=== PATIENT | female | born 1955 | race Caucasian/White ===

== ENCOUNTER 2017-02-26 05:30 | Observation (INO) ==
[2017-02-26] MEDS ORDERED: ONDANSETRON 4 MG/2 ML VIAL IV PRN (06:16)
[2017-02-26] MEDS ORDERED: ENOXAPARIN 100 MG/ML SYRINGE SUBCUT STA (06:16)
[2017-02-26] MEDS ORDERED: NITROGLYCERIN 2% OINT 1 INCH/GM PACK TOP STA (06:16)
[2017-02-26] MEDS ORDERED: MORPHINE 2 MG/1 ML SYRINGE IV PRN (06:16)
[2017-02-26] MEDS ORDERED: ASPIRIN 325 MG TABLET PO STA (06:16)
--- NOTE | 2017-02-26 06:19 | EKG Report ---
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
[2017-02-26 06:25] LABS: Basophils # 0.1 10*3/uL (0.0-0.2); Basophils % 1.1 % (0.0-0.8); Eosinophils # 0.3 10*3/uL (0.0-0.87); Eosinophils % 3.7 % (0.00-10.9); Hemoglobin 12.3 GM/DL (12.0-16.0); Immature Granulocytes % 0.1 %; Immature Granulocytes Absolute 0.01 #; Lymphocytes # 3.8 10*3/uL (1.4-4.0); Lymphocytes % 50.3 % (21.3-54.2); Mean Corpuscular HGB Conc 34.2 GM/DL (32-36); Mean Corpuscular Hemoglobin 30 PG (27-34); Mean Corpuscular Volume 87.2 FL (87-102); Mean Platelet Volume 11.3 FL (9.6-12.0); Monocytes # 0.9 10*3/uL (0.11-0.8); Monocytes % 11.5 % (1.7-12.7); Neutrophils # 2.5 10*3/uL (1.4-7.4); Neutrophils % 33.3 % (38.7-73.9); Platelet Count 323 T/CUMM (130-400); Red Blood Count 4.13 MC/CUMM (3.8-5.5); Red Cell Distribution Width 13.8 % (9.3-17.3); White Blood Count 7.5 T/CUMM (4-12)
[2017-02-26] MEDS ORDERED: NITROGLYCERIN 2% OINT 1 INCH/GM PACK TOP ONE (06:26)
[2017-02-26] MEDS ORDERED: MORPHINE 2 MG/1 ML SYRINGE ONE (06:26)
[2017-02-26] MEDS ORDERED: ONDANSETRON 4 MG/2 ML VIAL ONE (06:26)
[2017-02-26] MEDS ORDERED: ENOXAPARIN 100 MG/ML SYRINGE SUBCUT ONE (06:26)
[2017-02-26] MEDS ORDERED: ASPIRIN 325 MG TABLET ONE ×2 (06:26→06:31)
--- NOTE | 2017-02-26 06:26 | Emergency Department Note ---
Jose Elias Garcia Brooke, am scribing for, and in the presence of, Jose Enrique Cason MD 06:21 . Kamla Garcia James D, MD, personally performed the services described in this documentation, ascribed by Sloane Moctezuma in my presence, and it is both accurate and complete 623 . Arrival - Arrival Chief Complaint: Chest Pain Stated Complaint: chest pain taken 3 nitro already ED Nursing Triage Note: pt presented to triage ambulatory with c/o midsternal chest pain x 6 hrs. pt took nitro sl x 3 since 399 and states relief of CP on arrival. also reports nausea and SOB on exhertion. BLE edema noted. described pain as pressure at home and rated it a 4/10 at home Limitations: No Limitations Source: Patient, RN Notes Reviewed Time Seen by Provider: 02/26/17 05:58 - History of Present Illness HPI Narrative: Patient is a 61 year old female who presents to the ED with c/o chest pain that started yesterday. She says after taking three Nitro, the chest pain was relieved and she is not currently in pain. The pain was located in the center of her chest. The chest pain was not brought on by exertion. She denies any chest pain prior to yesterday. Patient says she got nauseated with the pain and has shortness of breath upon exertion but denies any diaphoresis. She has some bilateral lower extremity edema, also. Patient had a heart cath done, three years ago, and she did not have any stents placed. 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 Sierra, was a couple of months ago. Patient increased her blood pressure medication last week, Procardia, from 30mg to 60mg because it the 30mg was not keeping her blood pressure lowered. She has FHx of ID that includes her Father and Brother(age 57). She has PMHx of CAD, HTN, anxiety, depression, dyslipidemia, and GERD. Patient is not a smoker. Onset (ago): day(s) (1) Consistency: now resolved Date of Last Menstrual Period: hyst Allergies/Adverse Reactions: Allergies Allergy/AdvReac Type Severity Reaction Status Date / Time No Known Allergies Allergy Verified 02/26/17 05:44 Home Medications: Home Medications Medication Instructions Recorded Confirmed Type Aspirin [Ecotrin] 81 mg PO DAILY 02/24/16 02/24/16 History Atenolol [Tenormin] 25 mg PO BID 02/24/16 02/24/16 History DULoxetine [Cymbalta] 90 mg PO DAILY 02/24/16 02/24/16 History Donepezil [Aricept] 5 mg PO BEDTIME 02/24/16 02/24/16 History Estrogens, Conjugated [Premarin] 1.25 mg PO DAILY 02/24/16 02/24/16 History Fenofibrate [Tricor] 145 mg PO DAILY 02/24/16 02/24/16 History HYDROcodone/ACETAMIN 10-325 [[place] 1 tablet PO Q6H 02/24/16 02/24/16 History 10-325] Losartan [Cozaar] 50 mg PO DAILY 02/24/16 02/24/16 History Montelukast Tab [Singulair Tab] 10 mg PO BEDTIME 02/24/16 02/24/16 History Nitroglycerin [Nitrostat] 0.3 mg PO DIRECTED PRN 02/24/16 02/24/16 History Rosuvastatin [Crestor] 10 mg PO DAILY 02/24/16 02/24/16 History clonazePAM TAB [KlonoPIN] 0.5 mg PO TID 02/24/16 02/24/16 History hydroCHLOROthiazide 12.5 mg PO DAILY 02/24/16 02/24/16 History [Hydrochlorothiazide] Review of System - Review of System 12 point system: reviewed and no additional remarkable complaints except as stated - Review of System Constitutional: Absent: diaphoresis, fever Respiratory: Present: other (shortness of breath with exertion). Absent: respiratory distress Cardiovascular: Present: chest pain (middle), edema (bilateral lower extremity) Gastrointestinal: Present: nausea Skin: Absent: rash Medical,Surgical,& Family Hx - Medical History Cardio: History of: CAD, Hypertension Psychological: History of: Anxiety Disorders, Depression Endocrine: History of: Dyslipidemia Gastrointestinal: History of: GERD - Surgical History Cardiac Surgeries: Sugical HX of: Cardiac Catheterization (2013) Abdominal Surgeries: Surgical HX of: Abdominal Surgery (tummy tuck) Reproductive Surgeries: Surgical HX of;: Breast Surgery (breast reduction), Hysterectomy - Social History Smoking Status: Never smoker Frequency of Alcohol Use: Rarely Type of Drug Use: None Exam Vital Signs: Vital Signs Temperature 97.7 F 02/26/17 05:33 Pulse Rate 90 02/26/17 05:58 Respiratory Rate 20 02/26/17 05:58 Blood Pressure 116/69 02/26/17 05:58 O2 Sat by Pulse Oximetry 97 02/26/17 05:58 GENERAL: This is a well-nourished well-developed white female in no apparent distress. VITAL SIGNS: Reviewed HEENT: Head is atraumatic and normocephalic. Pupils are equal round react to light. Extraocular movements are intact. Oropharynx is benign with moist mucous membranes. NECK: Neck is soft and supple without tenderness. There are no masses. There is no lymphadenopathy. LUNGS: Lungs are clear to auscultation. Chest rises symmetrically. There is no chest wall tenderness. CV: Heart is regular rate and rhythm without murmurs rubs or gallops. ABDOMEN: Abdomen is soft, nontender to palpation. There are no abdominal abnormal masses palpated. There is no organomegaly. Bowel sounds are present and active. SKIN: Skin is warm and dry. No rash. EXTREMITIES: Patient has full range of motion without tenderness. There is no pedal edema. NEUROLOGIC: Awake alert and oriented 4. Cranial nerves II through XII are grossly intact. Motor is 5 over 5 in all extremities bilaterally. Course - Consultations Consultation #1: Discussed with Dr. Graves. Patient will be admitted to his service. Initial orders written for him. Patient's care will be assumed by him on her arrival to the [facility]. Time: 07:24 Results - Labs CBC & BMP: 02/26/17 05:53 02/26/17 05:53 Lab Results: I have reviewed the patients labs Labs: Laboratory Tests 02/26/17 05:53 Troponin I < 0.015 - EKG EKG results: interpreted by ERMD - Impressions EKG: Sinus tachycardia with a rate of 100, nonspecific ST-T wave changes, normal axis. - Diagnostic Findings Procedure: Chest x-ray: image reviewed by me (No infiltrates, no pleural effusions.) Disposition Clinical Impression: Chest pain, Coronary artery disease, Essential hypertension Case discussed with: patient Disposition: Still a Patient Condition: Stable Time of Disposition: 07:16
[2017-02-26 06:44] LABS: Partial Thromboplastin Time 24.9 SECS (0-40)
[2017-02-26 06:50] LABS: Eosinophils 8 % (0-10); Hypochromasia 1+; Lymphocytes 45 % (20-55); Platelet Estimate Adequate; Segmented Neutrophils 32 % (50-85); Total Cells Counted 100
--- NOTE | 2017-02-26 06:53 | XRay Report ---
XR chest 2V Indication: Chest pain Comparison: 20 July 2014 Findings: The heart and mediastinum are normal in size and configuration. The pulmonary vascularity is normal in caliber. No lung infiltrates, effusions, pneumothorax or other abnormality is demonstrated. Impression: Normal chest x-ray PROCEDURE INTERPRETED AT [facility] DEPARTMENT OF RADIOLOGY Final Report Signed by: Dr. Andre Matthews
[2017-02-26 07:03] LABS: Albumin 3.4 G/DL (3.4-5.0); Bilirubin,Total 0.6 MG/DL (0.2-1.0); Calcium 8.8 MG/DL (8.5-10.1); Osmolality,Calculated 283.4 MOS/KG (273-304); Potassium 3.4 MMOL/L (3.5-5.1); Total Protein 6.4 G/DL (6.4-8.3)
[2017-02-26 08:07] LABS: Barbiturates Screen,Urine Negative (Negative); Benzodiazepines Screen,Urine Negative (Negative); Cannabinoid Screen,Urine Negative (Negative); Opiate Screen,Urine Positive (Negative); Phencyclidine Screen,Urine Negative (Negative)
[2017-02-26] MEDS ORDERED: SODIUM CHLORIDE 0.9% 1,000 ML IV SCH (08:27)
[2017-02-26] MEDS ORDERED: MAGNESIUM SULF RIDER 2 GM in PREMIX 1 EACH IV PRN ×2 (08:27→09:35)
[2017-02-26] MEDS ORDERED: MAGNESIUM SULF RIDER 4 GM in PREMIX 1 EACH IV PRN (08:27)
[2017-02-26] MEDS ORDERED: POTASSIUM CHLORIDE RIDER 10 MEQ in PREMIX 1 EACH IV PRN (09:35)
[2017-02-26] MEDS ORDERED: DIAZEPAM 5 MG TABLET PO ONE (09:35)
[2017-02-26] MEDS ORDERED: diphenhydrAMINE CAP 25 MG CAPSULE PO ONE (09:35)
--- NOTE | 2017-02-26 10:09 | Cardiology History & Physical ---
<Megan Flores E - Last Filed: 02/26/17 09:18> Assessment and Plan - Time spent with patient Time spent with patient: Greater than 30 minutes (1) Dyslipidemia Status: Chronic Assessment and plan: SEE PLAN OF CARE LISTED BELOW Current Visit: Yes (2) Sleep disorder Status: Chronic Assessment and plan: SEE PLAN OF CARE LISTED BELOW Current Visit: Yes (3) Anxiety Status: Chronic Assessment and plan: SEE PLAN OF CARE LISTED BELOW Current Visit: Yes (4) Chest pain Status: Resolved Assessment and plan: SEE PLAN OF CARE LISTED BELOW Current Visit: Yes (5) Essential hypertension Status: Chronic Assessment and plan: SEE PLAN OF CARE LISTED BELOW Current Visit: Yes (6) Edema Status: Acute Assessment and plan: SEE PLAN OF CARE LISTED BELOW Current Visit: Yes History of Present Illness Chief complaint: Chest pain History of present illness: 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 Norton, 61WF, followed by Dr. Sierra. Last seen in cardiology clinic January 05, 2017. Risk factors include: Hypertension, dyslipidemia, family history of premature PVD. Heart catheterization 05/27/2014 revealed the following: The left main artery was large, there was an ostial narrowing in certain views that may have been 50-60%, but in some views it was less than 20%. Dr. Rivero was consulted. It was felt that the left main disease was not critical. Stress test November 16, 2016 revealed normal perfusion study, LVEF 77%. History of severe anxiety with the loss of a child. 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 Chest discomfort occurred last evening around 9 PM, located in the mid to left chest area. Patient was sitting when this occurred. She described as "sharp and squeezing" sensation without radiation. It is not associated with shortness of breath, nausea or vomiting. She took a nitroglycerin and the chest discomfort relieved itself. This morning around 0330, patient began to experience the same type of chest discomfort. She took a total of 3 nitroglycerin this morning before the chest pain was relieved. Rates the discomfort at its worse as a 7 on a scale of 1-10, currently chest pain-free. She can identify no aggravating factors, nitroglycerin possibly related chest discomfort. Cardiac biomarkers negative, EKG unrevealing. Dr. Graves is present, has seen and examined patient. Given her last heart catheterization report, symptoms relieved with nitroglycerin, it is felt best to proceed with heart catheterization. I will keep her NPO and Dr. Graves will discuss with Dr. Tim. Of note, patient has been battling hypertension over the past several weeks with recent medication adjustments in clinic. She finds that her blood pressure has been elevated during the night frequently, averaging 170s/90s. Figueroa Goyal, [employer], initiated Procardia XL 30 mg each evening. She recently increase that to 60 mg each evening and blood pressure has been somewhat improved. Also, she does not sleep well. History of insomnia, easy fatigability, poor sleep quality. She believes that she may have sleep apnea as she frequently wakes gasping for air. Will have Dr. Bentley see her during this admission. ASSESSMENT/PLAN: 1. CHEST PAIN - NPO for [facility] today 2. HYPERTENSION - adjust medications accordingly during hospital stay 3. DYSLIPIDEMIA - reports prior history of triglycerides being 1300 prior to starting lipid-lowering agent. 4. EDEMA - worse since starting Procardia. Will add d-dimer to her lab draw 5. ANXIETY - lost her daughter who is a senior was on the hospital approximately 5 years ago. She was involved in a car wreck. She has sought professional help and feels like she is stable most days 6. SLEEP DISORDER - consult Dr. Bentley Home Medications Medication Instructions Recorded Confirmed Type Aspirin [Ecotrin] 81 mg PO DAILY 02/24/16 02/26/17 History Atenolol [Tenormin] 25 mg PO DAILY 02/24/16 02/26/17 History DULoxetine [Cymbalta] 90 mg PO DAILY 02/24/16 02/26/17 History Donepezil [Aricept] 5 mg PO BEDTIME 02/24/16 02/26/17 History Estrogens, Conjugated [Premarin] 1.25 mg PO DAILY 02/24/16 02/26/17 History Fenofibrate [Tricor] 145 mg PO DAILY 02/24/16 02/26/17 History HYDROcodone/ACETAMIN 10-325 [[place] 1 tablet PO BID 02/24/16 02/26/17 History 10-325] Losartan [Cozaar] 100 mg PO DAILY 02/24/16 02/26/17 History Montelukast Tab [Singulair Tab] 10 mg PO BEDTIME 02/24/16 02/26/17 History Rosuvastatin [Crestor] 10 mg PO DAILY 02/24/16 02/26/17 History clonazePAM TAB [KlonoPIN] 0.5 mg PO BID 02/24/16 02/26/17 History hydroCHLOROthiazide 12.5 mg PO DAILY 02/24/16 02/26/17 History [Hydrochlorothiazide] Atenolol [Atenolol] 50 mg PO BEDTIME 02/26/17 02/26/17 History Gabapentin 300 mg PO DAILY 02/26/17 02/26/17 History NIFEdipine [Nifedipine ER] 30 mg PO BEDTIME 02/26/17 02/26/17 History Nitroglycerin [Nitroglycerin SL 0.4 mg PO DIRECTED 02/26/17 02/26/17 History Tab] Temazepam [Restoril] 30 mg PO BEDTIME 02/26/17 02/26/17 History Allergies Allergy/AdvReac Type Severity Reaction Status Date / Time No Known Allergies Allergy Verified 02/26/17 05:44 Review of systems: REVIEW OF SYSTEMS: - Constitutional Constitutional: Present: Fatigue. Absent: syncope, anorexia, night sweats - EENT Eyes: Absent: blurry vision, loss of vision, diplopia Ears: Absent: decreased hearing, ear pain, ear discharge - Cardiovascular Cardiovascular: Present: chest pain at various times. Recent edema of lower extremity since starting Procardia. Frequent palpitations. Denies dyspnea on exertion. Absent: chest pain with deep breath, claudication - Respiratory Respiratory: Denies: BA, cough. Absent: wheezing, hemoptysis, change in phlegm color - Gastrointestinal Gastrointestinal: Denies: constipation. Absent: adbominal pain, hematemesis, hematochezia, melena, change in bowel habits, nausea - Genitourinary Genitourinary: Absent: difficulty urinating, dysuria, urinary hesitancy, flank pain - Musculoskeletal Musculoskeletal: Denies: back pain Absent: joint swelling, muscle cramps, muscle weakness - Neurological Neurological: Present: normal gait without frequent falls. Absent: dizziness, hemiparesis - Psychiatric Psychiatric: Acknowledges: anxiety, depression, difficulty concentrating - Endocrine Endocrine: Present: fatigue. Absent: cold intolerance, heat intolerance, polyuria, polyphagia, polydipsia - Hematologic/Lymphatic Hematologic/Lymphatic: Present: easy bruising. Absent: easy bleeding -Integumentary Integumentary: Absent: lesions, rashes, skin breakdown Medical,Surgical,& Family Hx - Medical History Cardio: History of: CAD, Hypertension No history of: DE Psychological: History of: Anxiety Disorders, Depression Endocrine: History of: Dyslipidemia Gastrointestinal: History of: GERD - Surgical History Cardiac Surgeries: Sugical HX of: Cardiac Catheterization (2013) Abdominal Surgeries: Surgical HX of: Abdominal Surgery (tummy tuck) Reproductive Surgeries: Surgical HX of;: Breast Surgery (breast reduction), Hysterectomy - Family History Family History: Reports;: Family Hypertension - Social History Smoking Status: Never smoker Have you smoked in the last 12 months: No Frequency of Alcohol Use: Rarely Type of Drug Use: None Marital Status: Lives With:: Spouse Functional capacity: independent ambulation Cardiology Physical Exam - Constitutional Vitals: Vital Signs Temp Pulse Resp BP Pulse Ox 96.6 F L 104 H 17 156/89 95 02/26/17 08:27 02/26/17 08:27 02/26/17 08:27 02/26/17 08:27 02/26/17 08:27 Intake and Output 02/25/17 02/26/17 02/26/17 23:59 07:59 15:59 Other: Weight 87.09 kg Patient Weight 02/26/17 23:59 Weight 87.09 kg Exam: General: [Appears well with no apparent distress.] [Pleasant and cooperative. ] [Appears comfortable.] HEENT: [PERRL, normocephalic, atraumatic. Mucous membranes moist. No jaundice noted. Conjunctiva moist and clear, sclerae anicteric] Neck: No JVD/HJR, no thyromegaly or lymphadenopathy noted. No carotid bruit appreciated Cardiac: [Regular rate and rhythm.] [No murmur rub or gallop.] Lungs: [Clear to auscultation without accessory muscle use to assist the respiratory pattern.] Not requiring oxygen Abdomen: Soft, bowel sounds normoactive. Nontender and nondistended. No abdominal bruit or thrill noted. No masses noted. Musculoskeletal: No fluid collection. Decreased range of motion is noted. Extremities: No clubbing, cyanosis noted. [ No edema noted.] Upper extremity pulses 2+. Lower extremity pulses 2+. Capillary refill less than 3 seconds. Skin: No unusual lesions or rashes. No skin breakdown appreciated. Neuro: Awake, alert and oriented 3. Moves all extremities well without hemiparesis or paralysis. No essential tremor is appreciated. Result/EKG - Labs CBC & BMP: 02/26/17 05:53 02/26/17 05:53 Lab Results: I have reviewed the past 24 hour labs Labs: Laboratory Results - last 24 hr 02/26/17 02/26/17 02/26/17 05:53 05:53 05:53 WBC 7.5 RBC 4.13 Hgb 12.3 Hct 36.0 MCV 87.2 MCH 30 MCHC 34.2 RDW 13.8 Plt Count 323 MPV 11.3 Neut % (Auto) 33.3 L Lymph % (Auto) 50.3 [place] % (Auto) 11.5 Eos % (Auto) 3.7 Baso % (Auto) 1.1 H Neut # (Auto) 2.5 Lymph # (Auto) 3.8 [place] # (Auto) 0.9 H Eos # (Auto) 0.3 Baso # (Auto) 0.1 Total Counted 100 Immature Gran % 0.1 Nucleated RBC % 0.0 Immature Gran # 0.01 Segmented Neutrophils 32 L Lymphocytes 45 Monocytes 14 Eosinophils 8 Basophils 1.0 H Nucleated RBCs # 0.00 Platelet Estimate Adequate Hypochromasia 1+ INR 1.0 PT Patient/Control Mix 11.0 Circ Anticoag PTT 24.9 Sodium 140 Potassium 3.4 L Chloride 104 Carbon Dioxide 27 Anion Gap 12.4 BUN 24 H Creatinine 0.70 GFR Calculation 108 BUN/Creatinine Ratio 34.00 H Glucose 113 H Calculated Osmolality 283.4 Calcium 8.8 Total Bilirubin 0.60 AST 19 ALT 24 Alkaline Phosphatase 39 L Troponin I Total Protein 6.4 Albumin 3.4 Globulin 3.0 Albumin/Globulin Ratio 1.1 Lipase 206.0 Urine Opiates Screen Ur Barbiturates Screen Ur Phencyclidine Scrn U Amphetamine/Methamph U Benzodiazepines Scrn U Cocaine Metab Screen U Cannabinoids Screen 02/26/17 02/26/17 05:53 07:39 WBC RBC Hgb Hct MCV MCH MCHC RDW Plt Count MPV Neut % (Auto) Lymph % (Auto) [place] % (Auto) Eos % (Auto) Baso % (Auto) Neut # (Auto) Lymph # (Auto) [place] # (Auto) Eos # (Auto) Baso # (Auto) Total Counted Immature Gran % Nucleated RBC % Immature Gran # Segmented Neutrophils Lymphocytes Monocytes Eosinophils Basophils Nucleated RBCs # Platelet Estimate Hypochromasia INR PT Patient/Control Mix Circ Anticoag PTT Sodium Potassium Chloride Carbon Dioxide Anion Gap BUN Creatinine GFR Calculation BUN/Creatinine Ratio Glucose Calculated Osmolality Calcium Total Bilirubin AST ALT Alkaline Phosphatase Troponin I < 0.015 Total Protein Albumin Globulin Albumin/Globulin Ratio Lipase Urine Opiates Screen Positive H Ur Barbiturates Screen Negative Ur Phencyclidine Scrn Negative U Amphetamine/Methamph Negative U Benzodiazepines Scrn Negative U Cocaine Metab Screen Negative U Cannabinoids Screen Negative - Diagnostic Findings Procedure: Chest x-ray: report reviewed by me - EKG EKG results: interpreted by wy EKG shows: sinus rhythm <Shaen Graves - Last Filed: 02/26/17 10:21> History of Present Illness History of present illness: Cardiology addendum. Patient examined chart reviewed and discussed with nurse Megan flores Cardiac cath May 27, 2014 showed moderate ostial left main stenosis with normal ejection fraction. Normal nuclear stress test November 16, 2016 Patient had chest pain last night at 9 PM relieved after 1 nitro and recurrent chest pain around 3 AM this morning relieved after 3 nitro's. She never had to take 3 nitros before to get relief. Negative troponin. EKG shows ST-T wave changes only. Hypertension Hyperlipidemia Family history PVD and carotid stenosis Lifetime non-smoker Plan Cardiac cath. Procedure, risk benefit reviewed with patient and her with nurse Guzman present for the full discussion. All questions answered. She agrees to proceed. Cardiology Physical Exam - Constitutional Vitals: Vital Signs Temp Pulse Resp BP Pulse Ox 96.6 F L 104 H 17 156/89 95 02/26/17 08:27 02/26/17 08:27 02/26/17 08:27 02/26/17 08:27 02/26/17 08:27 Intake and Output 02/25/17 02/26/17 02/26/17 23:59 07:59 15:59 Other: Weight 87.09 kg Patient Weight 02/26/17 23:59 Weight 87.09 kg Result/EKG - Labs CBC & BMP: 02/26/17 05:53 02/26/17 05:53 Labs: Laboratory Results - last 24 hr 02/26/17 02/26/17 02/26/17 05:53 05:53 05:53 WBC 7.5 RBC 4.13 Hgb 12.3 Hct 36.0 MCV 87.2 MCH 30 MCHC 34.2 RDW 13.8 Plt Count 323 MPV 11.3 Neut % (Auto) 33.3 L Lymph % (Auto) 50.3 [place] % (Auto) 11.5 Eos % (Auto) 3.7 Baso % (Auto) 1.1 H Neut # (Auto) 2.5 Lymph # (Auto) 3.8 [place] # (Auto) 0.9 H Eos # (Auto) 0.3 Baso # (Auto) 0.1 Total Counted 100 Immature Gran % 0.1 Nucleated RBC % 0.0 Immature Gran # 0.01 Segmented Neutrophils 32 L Lymphocytes 45 Monocytes 14 Eosinophils 8 Basophils 1.0 H Nucleated RBCs # 0.00 Platelet Estimate Adequate Hypochromasia 1+ INR 1.0 PT Patient/Control Mix 11.0 Circ Anticoag PTT 24.9 Sodium 140 Potassium 3.4 L Chloride 104 Carbon Dioxide 27 Anion Gap 12.4 BUN 24 H Creatinine 0.70 GFR Calculation 108 BUN/Creatinine Ratio 34.00 H Glucose 113 H Calculated Osmolality 283.4 Calcium 8.8 Total Bilirubin 0.60 AST 19 ALT 24 Alkaline Phosphatase 39 L Troponin I Total Protein 6.4 Albumin 3.4 Globulin 3.0 Albumin/Globulin Ratio 1.1 Lipase 206.0 Urine Opiates Screen Ur Barbiturates Screen Ur Phencyclidine Scrn U Amphetamine/Methamph U Benzodiazepines Scrn U Cocaine Metab Screen U Cannabinoids Screen 02/26/17 02/26/17 05:53 07:39 WBC RBC Hgb Hct MCV MCH MCHC RDW Plt Count MPV Neut % (Auto) Lymph % (Auto) [place] % (Auto) Eos % (Auto) Baso % (Auto) Neut # (Auto) Lymph # (Auto) [place] # (Auto) Eos # (Auto) Baso # (Auto) Total Counted Immature Gran % Nucleated RBC % Immature Gran # Segmented Neutrophils Lymphocytes Monocytes Eosinophils Basophils Nucleated RBCs # Platelet Estimate Hypochromasia INR PT Patient/Control Mix Circ Anticoag PTT Sodium Potassium Chloride Carbon Dioxide Anion Gap BUN Creatinine GFR Calculation BUN/Creatinine Ratio Glucose Calculated Osmolality Calcium Total Bilirubin AST ALT Alkaline Phosphatase Troponin I < 0.015 Total Protein Albumin Globulin Albumin/Globulin Ratio Lipase Urine Opiates Screen Positive H Ur Barbiturates Screen Negative Ur Phencyclidine Scrn Negative U Amphetamine/Methamph Negative U Benzodiazepines Scrn Negative U Cocaine Metab Screen Negative U Cannabinoids Screen Negative
--- NOTE | 2017-02-26 10:22 | History and Physical Update ---
Sedation H&P Update - History and Physical H&P was reviewed, the patient examined and there: are no changes in the patients condition since last H&P was completed. - Dictation Physical: refer to H&P completed by admitting physician (I saw and examined the patient. I reviewed with her the [facility] films from 2013. Her was present. ) - Physical Exam Mental Status: alert and oriented Heart: regular rate and rhythm Lung: clear to auscultation Abdomen: within normal limits Vitals: within normal limits - Sedation Plan for Sedation: moderate Patient Consent: Procedure disscussed with patient and patinet has consented., Risks and benefits were discussed with patient,including infection,, bleeding, injury to surrounding structures, seizure, temporary nerve, Patient understands and accepts potential risks/benefits and agrees to, proceed. ASA Class: II Airway Assessment: Class III: Soft palate, base of uvula visible
[2017-02-26] MEDS ORDERED: HEPARIN/NACL 0.9% 2 UNITS/ML 1,000 ML IV ONE (10:33)
[2017-02-26] MEDS ORDERED: LIDOCAINE 1% 20 ML VIAL ONE (10:33)
[2017-02-26] MEDS ORDERED: MIDAZOLAM 2 MG/2 ML VIAL ONE ×2 (10:33→11:54)
[2017-02-26] MEDS ORDERED: fentaNYL 100 MCG/2 ML VIAL ONE (10:33)
[2017-02-26] MEDS ORDERED: diphenhydrAMINE 50 MG/1 ML VIAL ONE (11:01)
[2017-02-26] MEDS ORDERED: NITROGLYCERIN DRIP 50 MG/250 ML BOTTLE IV ONE (11:18)
[2017-02-26] MEDS ORDERED: HEPARIN 5,000 UNIT/1 ML VIAL ONE (11:27)
[2017-02-26] MEDS ORDERED: ADENOSINE 90 MG/30 ML VIAL IV ONE (11:31)
--- NOTE | 2017-02-26 12:48 | Sleep Medicine Consult ---
Assessment and Plan (1) Sleep disorder Status: Chronic Assessment and plan: With her history of difficult to control hypertension and difficulty maintaining sleep due to nocturia, I do think that sleep evaluation should be done. We will set her up for outpatient sleep study and follow-up on her results. She does have a history of light snoring. Thank you for this consult. Current Visit: Yes (2) Essential hypertension Status: Chronic Assessment and plan: The prevalence rate for obstructive sleep apnea patients with hypertension is 35 %. That rate can be as high as 80% in patients who require 4 or more medications for blood pressure control. Current Visit: Yes History of Present Illness Chief complaint: Sleep apnea History of present illness: Ms. Norton is a 61 year old female admitted with chest pain. During the course of her evaluation it was noted that she was having issues with her sleep. She is a light snore with no history of witnessed apneas. She does have difficulty initiating sleep at times. She does awaken multiple times during the night to urinate and estimates at least 4 times nightly. She has been having issues with lower extremity swelling as well. She has difficult to control hypertension and is on at least 3 medications for blood pressure control. She has had a cardiac cath but did not require intervention and will be continued on medication. She denies significant issues with sleepiness. She does sometimes have discomfort of her legs with kicking and jerking of her legs. Home Medications Medication Instructions Recorded Confirmed Type Aspirin [Ecotrin] 81 mg PO DAILY 02/24/16 02/26/17 History Atenolol [Tenormin] 25 mg PO DAILY 02/24/16 02/26/17 History DULoxetine [Cymbalta] 90 mg PO DAILY 02/24/16 02/26/17 History Donepezil [Aricept] 5 mg PO BEDTIME 02/24/16 02/26/17 History Estrogens, Conjugated [Premarin] 1.25 mg PO DAILY 02/24/16 02/26/17 History Fenofibrate [Tricor] 145 mg PO DAILY 02/24/16 02/26/17 History HYDROcodone/ACETAMIN 10-325 [Poth 1 tablet PO BID 02/24/16 02/26/17 History 10-325] Losartan [Cozaar] 100 mg PO DAILY 02/24/16 02/26/17 History Montelukast Tab [Singulair Tab] 10 mg PO BEDTIME 02/24/16 02/26/17 History Rosuvastatin [Crestor] 10 mg PO DAILY 02/24/16 02/26/17 History clonazePAM TAB [KlonoPIN] 0.5 mg PO BID 02/24/16 02/26/17 History hydroCHLOROthiazide 12.5 mg PO DAILY 02/24/16 02/26/17 History [Hydrochlorothiazide] Atenolol [Atenolol] 50 mg PO BEDTIME 02/26/17 02/26/17 History Gabapentin 300 mg PO DAILY 02/26/17 02/26/17 History NIFEdipine [Nifedipine ER] 30 mg PO BEDTIME 02/26/17 02/26/17 History Nitroglycerin [Nitroglycerin SL 0.4 mg PO DIRECTED 02/26/17 02/26/17 History Tab] Temazepam [Restoril] 30 mg PO BEDTIME 02/26/17 02/26/17 History Allergies Allergy/AdvReac Type Severity Reaction Status Date / Time No Known Allergies Allergy Verified 02/26/17 05:44 Review of systems: Otherwise unremarkable from a sleep medicine standpoint Exam (Pulmonay) H&P - Constitutional Vitals: Period Temp Pulse Resp BP Sys/Ho Pulse Ox Last 24 Hr 96.6 F-97.7 F 83-110 13-20 116-156/49-89 95-100 Exam: She is alert and responsive in no acute distress. Pupils equal round reactive to light and accommodation. Extraocular movements intact. Oropharynx with a class III Mallampati exam. Neck is supple without adenopathy or thyromegaly. No supraclavicular adenopathy is noted. Chest with symmetrical breath sounds without focal wheeze, rhonchi, or rales. Cardiac exam reveals a regular rhythm without murmur or gallop. Abdomen soft nontender without palpable hepatosplenomegaly or mass. Extremities are without clubbing, cyanosis, or edema. Neurologically, she is grossly intact. She moves all extremities with good strength. Medical,Surgical,& Family Hx - Medical History Cardio: History of: CAD, Hypertension No history of: [place] Psychological: History of: Anxiety Disorders, Depression Endocrine: History of: Dyslipidemia Gastrointestinal: History of: GERD - Surgical History Cardiac Surgeries: Sugical HX of: Cardiac Catheterization (2013) Abdominal Surgeries: Surgical HX of: Abdominal Surgery (tummy tuck) Reproductive Surgeries: Surgical HX of;: Breast Surgery (breast reduction), Hysterectomy - Family History Family History: Reports;: Family Hypertension - Social History Smoking Status: Never smoker Frequency of Alcohol Use: Rarely Type of Drug Use: None Results - Labs CBC & BMP: 02/26/17 05:53 02/26/17 05:53 Lab Results: I have reviewed the past 24 hour labs Quality Measures - VTE Contraindication to Pharmacological VTE Prophylaxis: High Risk of Bleeding
--- NOTE | 2017-02-26 12:54 | Cardiac Catheterization ---
Date of Procedure:: 02/26/17 Pre-op Diagnosis: Typical chest pain at rest with known coronary artery disease (left heart 2014 with left main stenosis, equivocal) Post-op diagnosis: other (Typical chest pain relieved with nitroglycerin and no hemodynamically significant demonstrable stenosis with IVUS evaluation of left main showing no significant epicardial narrowing, mild atheroma) Procedure: Procedures: 1. Selective left and right coronary angiography 2. Right femoral iliac angiography 3. Closure right femoral arteriotomy with Mynx closure device 4. IVUS of the proximal LAD and Left main coronary arteries After consent was taken from the patient. Taken to the catheterization lab for left heart catheterization via the femoral artery. Time out was taken and recorded. 1% lidocaine was infiltrated in the skin and subcutaneous tissue overlying the right femoral artery. Modified Seldinger technique and an 18- gauge Cook needle was used for access to the right femoral artery. An 0.35 J- wire was advanced through the needle into the central aorta under fluoroscopy. A small skin was made and a 6 Danish sheath was placed over the wire. The sheath was aspirated and flushed. A JL4 4 Danish catheter was advanced over the wires in the left main coronary artery was selectively engaged. Multiple orthogonal views of the left system were obtained. The catheter was then exchanged over the wire. The sheath was aspirated and flushed. A JR4 catheter was advanced over the wire into the central aorta. The right coronary was selectively engaged and orthogonal views of the right coronary artery were obtained. The catheter was then exchanged over the wire, the sheath was aspirated and flushed. At this time the batting machine operator insulation reviewed the films. Dr. Graves also was consulted to review the films with me. We agreed that this appeared to be an equivocal proximal left main lesion similar to the imaging seen in 2014. At this time the room was set up for the intervention mode the patient received 5000 units of intravenous heparin and ACT was verified to be greater than 230 seconds. A 6 Danish JL4 guide was advanced over the wire in the central aorta with great care taken not to selectively engage the left main. A flow wire was advanced into the distal LAD after it had been normalized and the guide. Due to technical difficulties with computer software the flow wire was unsuccessful. The wire was removed. At this time a 180 cm Synesis pro-water wire was advanced into the distal LAD. 200 mics of intracoronary nitroglycerin were given and IVUS catheter was advanced over the wire. When it left the guide , the screen would go blank. Representatives work and contacted and they recommended a new catheter which we used successfully to image the proximal LAD and left main. There is mild atheroma at the ostial proximal portion of the LAD. There was no significant atheroma seen in the left main itself. The area was calculated to exceed 17 mm2. After completion of the IV was run 3 2 orthogonal views were obtained after the wire was removed. The batting machine operator insulation reviewed the films. The sheath was aspirated and flushed and a right femoral and iliac angiography was performed. The access site was amenable for closure and the area was reprepped with ChloraPrep and draped with sterile towels. The Mynx closure device was used in standard technique. There was no hematoma and distal pulses were good. At the completion of the procedure the patient complained some of back pain in the middle of her back. She rated it as as 1-2 out of 10. She has not had back pain before. There was concerns of possible retroperitoneal hematoma. There had been a stick before successful access to the femoral artery that was not able to pass the wire. She will be monitored closely for retroperitoneal bleeding. There was no evidence of bleeding on the right femoral iliac angiogram. I discussed findings with the patient and her as well as their daughter- in-law Nancy Norton FINDINGS: Ao:147/75 LM:There is a very eccentric appearing angiographic deformity in the proximal segment of the vessel. Angiographically this appears to be significantly in the AMHARIC view and in the AMHARIC cranial view specifically. This was the area specifically and underwent intravascular ultrasound that showed an area of 17 mm . There was no evidence of significant atheroma in the left main there was minimal luminal irregularities by ultrasound. This does not appear to be hemodynamically significant myelitis. LAD: This vessel xenograft were normal however there is minimal atheroma less than 10% in the proximal/ostial portion LCx: Small nondominant vessel. Is angiographically normal RCA: There is a large dominant vessel free of any atheroma. RFA/TEVIN: Right femoral iliac arteries are normal. Assessment: 1. Eccentric left main vessel angiographically with no intravascular ultrasound evidence of hemodynamically significant stenosis. 2. Mild atheroma in the proximal LAD by IVUS PLAN: 1. Therapeutic lifestyle changes risk factor modification consider other causes of chest discomfort relieved with nitroglycerin or small vessel disease. There is LAZARUS III flow in all vessels. Implants: Mynx closure device Anesthesia: moderate conscious sedation Surgeon / Physician: Yaquelin Tim Lace Mender: none Estimated blood loss: none Specimens: none sent Condition: stable Disposition: floor - Medications / Follow-up
--- NOTE | 2017-02-26 14:15 | EKG Report ---
Stationary ECG Study [facility] Test Date: 02/26/2017 2:17:16 PM Pat Name: EVITA SELLERS Department: Room: 275 Gender: F Food Writer: ARELIS : 1955 Requested by: Jose Enrique West Order Number: [id number] Reading MD: CARTER LE Intervals [place] Rate: 87 P: 43 AL: 176 QRS: 13 QRSD: 82 T: 28 QT: 364 QTc: 409 Interpretive Statements SINUS RHYTHM NONSPECIFIC T-WAVE ABNORMALITY Electronically Signed On 02-27-17 05:36:12 CDT by CARTER LE [email or web address]
[2017-02-26] MEDS: ESTROGENS (CONJ) 0.625 MG TABLET PO SCH (16:35)
[2017-02-26] MEDS: DULoxetine 30 MG CAPSULE PO SCH (16:35)
[2017-02-26] MEDS: clonazePAM 0.5 MG TABLET PO SCH ×2 (16:35→20:32)
[2017-02-26] MEDS: FENOFIBRATE 145 MG TABLET PO SCH (16:35)
[2017-02-26] MEDS: ATENOLOL 25 MG TABLET PO SCH (16:35)
[2017-02-26] MEDS ORDERED: NITROGLYCERIN SL 0.4 MG TABLET SL PRN (16:45)
[2017-02-26] MEDS ORDERED: GABAPENTIN 300 MG CAPSULE PO SCH (18:41)
[2017-02-26] MEDS ORDERED: DONEPEZIL 5 MG TABLET PO SCH (21:00)
[2017-02-26] MEDS ORDERED: ATENOLOL 50 MG TABLET PO SCH (21:00)
[2017-02-26] MEDS ORDERED: TEMAZEPAM 15 MG CAPSULE PO SCH (21:00)
[2017-02-26] MEDS ORDERED: clonazePAM 0.5 MG TABLET PO SCH (21:00)
[2017-02-26] MEDS ORDERED: MONTELUKAST 10 MG TABLET PO SCH (21:00)
[2017-02-27 06:13] LABS: Basophils # 0.1 10*3/uL (0.0-0.2); Basophils % 0.9 % (0.0-0.8); Eosinophils # 0.3 10*3/uL (0.0-0.87); Eosinophils % 3.7 % (0.00-10.9); Hematocrit 35.7 VOL% (35.7-47.0); Hemoglobin 11.8 GM/DL (12.0-16.0); Immature Granulocytes % 0.3 %; Immature Granulocytes Absolute 0.02 #; Lymphocytes # 2.9 10*3/uL (1.4-4.0); Lymphocytes % 38.7 % (21.3-54.2); Mean Corpuscular HGB Conc 33.1 GM/DL (32-36); Mean Corpuscular Hemoglobin 30 PG (27-34); Mean Corpuscular Volume 89.5 FL (87-102); Mean Platelet Volume 11.4 FL (9.6-12.0); Monocytes % 12.9 % (1.7-12.7); Neutrophils # 3.2 10*3/uL (1.4-7.4); Neutrophils % 43.5 % (38.7-73.9); Platelet Count 306 T/CUMM (130-400); Red Blood Count 3.99 MC/CUMM (3.8-5.5); Red Cell Distribution Width 13.9 % (9.3-17.3); White Blood Count 7.4 T/CUMM (4-12)
[2017-02-27 06:48] LABS: Calcium 9.1 MG/DL (8.5-10.1); Magnesium 2.1 MG/DL (1.8-2.4); Osmolality,Calculated 284.4 MOS/KG (273-304)
[2017-02-27 07:51] VITALS: BP 146/75
--- NOTE | 2017-02-27 08:26 | Cardiology Progress Note ---
Cardiology - PN: Subj Interval history: Cardiology note Cath findings reviewed with Dr. Hernández and with the patient and her . Minimal left main and LAD disease by SOHA Noncardiac chest pain. Right groin soft and dry. No bruit or hematoma. Distal pulses 2+ symmetric. Telemetry shows steady sinus rhythm. Regular rhythm no murmur or gallop Clear lungs Abdomen benign Lab data today Sodium 140 potassium 4.0 chloride 104 CO2 31 BUN 23 creatinine 0.80 Glucose 138 magnesium 2.1 White count 7.4 hemoglobin 11.8 hematocrit 35.7 Plan Home today no stooping straining or heavy lifting for 1 week To minimize potential groin problems Outpatient sleep study with Dr. Bentley Patient and reassured. Noncardiac chest pain Follow-up with Dr. Sierra Exam (Progress Note) - Constitutional Vitals: Period Temp Pulse Resp BP Sys/Ho Pulse Ox Last 24 Hr 96.4 F-98.5 F 18-104 17-20 112-156/64-89 95-98 Result/EKG - Labs CBC & BMP: 02/27/17 05:28 02/27/17 05:28 Labs: Laboratory Results - last 24 hr 02/26/17 02/26/17 02/26/17 09:34 09:36 14:31 WBC RBC Hgb Hct MCV MCH MCHC RDW Plt Count MPV Neut % (Auto) Lymph % (Auto) O'Brien % (Auto) Eos % (Auto) Baso % (Auto) Neut # (Auto) Lymph # (Auto) O'Brien # (Auto) Eos # (Auto) Baso # (Auto) Immature Gran % Nucleated RBC % Immature Gran # Nucleated RBCs # D-Dimer, Quantitative <= 0.5 Sodium Potassium Chloride Carbon Dioxide Anion Gap BUN Creatinine GFR Calculation BUN/Creatinine Ratio Glucose Calculated Osmolality Calcium Magnesium Troponin I < 0.015 < 0.015 02/27/17 02/27/17 05:28 05:28 WBC 7.4 RBC 3.99 Hgb 11.8 L Hct 35.7 MCV 89.5 MCH 30 MCHC 33.1 RDW 13.9 Plt Count 306 MPV 11.4 Neut % (Auto) 43.5 Lymph % (Auto) 38.7 O'Brien % (Auto) 12.9 H Eos % (Auto) 3.7 Baso % (Auto) 0.9 H Neut # (Auto) 3.2 Lymph # (Auto) 2.9 O'Brien # (Auto) 1.0 H Eos # (Auto) 0.3 Baso # (Auto) 0.1 Immature Gran % 0.3 Nucleated RBC % 0.0 Immature Gran # 0.02 Nucleated RBCs # 0.00 D-Dimer, Quantitative Sodium 140 Potassium 4.0 Chloride 104 Carbon Dioxide 31 Anion Gap 9.0 BUN 23 H Creatinine 0.80 GFR Calculation 92 BUN/Creatinine Ratio 28.00 H Glucose 138 H Calculated Osmolality 284.4 Calcium 9.1 Magnesium 2.1 Troponin I Quality Measures - VTE Contraindication to Pharmacological VTE Prophylaxis: High Risk of Bleeding
--- NOTE | 2017-02-27 08:50 | Discharge Summary ---
Hospital Course - Hospital Course Hospital Course: RETAIL ZONE SPECIALIST: DR. SIERRA FEBRUARY 26, 2017: Ms. Norton, 61WF, followed by Dr. Sierra. Last seen in cardiology clinic January 05, 2017. Risk factors include: Hypertension, dyslipidemia, family history of premature PVD. Heart catheterization 2013 revealed the following: The left main artery was large, there was an ostial narrowing in certain views that may have been 50-60%, but in some views it was less than 20%. Dr. Rivero was consulted. It was felt that the left main disease was not critical. Stress test November 16, 2016 revealed normal perfusion study, LVEF 77%. History of severe anxiety with the loss of a child. 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 Chest discomfort occurred last evening around 9 PM, located in the mid to left chest area. Patient was sitting when this occurred. She described as "sharp and squeezing" sensation without radiation. It is not associated with shortness of breath, nausea or vomiting. She took a nitroglycerin and the chest discomfort relieved itself. This morning around 0330, patient began to experience the same type of chest discomfort. She took a total of 3 nitroglycerin this morning before the chest pain was relieved. Rates the discomfort at its worse as a 7 on a scale of 1-10, currently chest pain-free. She can identify no aggravating factors, nitroglycerin possibly related chest discomfort. Cardiac biomarkers negative, EKG unrevealing. Dr. Graves is present, has seen and examined patient. Given her last heart catheterization report, symptoms relieved with nitroglycerin, it is felt best to proceed with heart catheterization. I will keep her NPO and Dr. Graves will discuss with Dr. Tim. Of note, patient has been battling hypertension over the past several weeks with recent medication adjustments in clinic. She finds that her blood pressure has been elevated during the night frequently, averaging 170s/90s. Figueroa Goyal, SUNNY, initiated Procardia XL 30 mg each evening. She recently increase that to 60 mg each evening and blood pressure has been somewhat improved. Also, she does not sleep well. History of insomnia, easy fatigability, poor sleep quality. She believes that she may have sleep apnea as she frequently wakes gasping for air. Will have Dr. Bentley see her during this admission. FEBRUARY 27, 2017: Underwent LHC yesterday, performed by Dr. Tim which revealed the following: Assessment: 1. Eccentric left main vessel angiographically with no intravascular ultrasound evidence of hemodynamically significant stenosis. 2. Mild atheroma in the proximal LAD by IVUS PLAN: 1. Therapeutic lifestyle changes risk factor modification consider other causes of chest discomfort relieved with nitroglycerin or small vessel disease. There is LAZARUS III flow in all vessels. Tolerated the procedure well without complication and was returned to telemetry unit in stable condition. Overnight, she has done well. Denies chest pain, heaviness or tightness. She has been ambulating in the room without difficulty. Right groin soft, free of hematoma or bruit. Labs are stable. Having felt she is met maximal medical therapy, she has been discharged home in stable condition. She will be given a follow-up appoint to see Dr. Sierra in 2-3 weeks. Of note, patient had been experiencing some hypertension at home , specifically in the evening she reports. So much so, that she had increased her Nifedipine ER 30 mg to 2 pills each evening. However, blood pressures are well controlled without spikes or hypertension noted during the entire hospital stay including during nighttime hours. She had been complaining of recent swelling and this may be related to the increase in her calcium channel humphrey recently. Her d-dimer was negative during hospital stay Dr. Bentley did see patient during hospital stay and believes she could benefit from outpatient sleep study. Will arrange for follow-up appoint with Dr. Bentley. She will resume all preadmission medications including the following: Aspirin 81 mg orally daily Losartan 100 mg orally daily Crestor 10 mg orally each evening Fenofibrate 145 mg orally daily Atenolol 50 mg orally each evening Atenolol 25 mg orally each morning Nifedipine ER 30 mg orally each evening. She will resume her other noncardiac preadmission medications. - Time spent with patient Time with patient DS: Greater than 30 minutes Diagnosis - Discharge Diagnosis (1) Dyslipidemia Status: Chronic (2) Sleep disorder Status: Chronic (3) Anxiety Status: Chronic (4) Chest pain Status: Resolved (5) Essential hypertension Status: Chronic (6) Edema Status: Acute Specialty Discharge - Follow Up or Referrals Follow up with: Soo Bentley MD [Physician] - (Needs outpatient F/U appointment for sleep study. Please schedule ) Leandro Sierra MD [Physician] - (2-3 weeks. ) Discharge Plan - Discharge Data Disposition: Disch To Home/Self Care Condition at Discharge: Stable Discharge Diet: heart healthy Activity: other (Post cath expectations) Hygiene: other (Post cath expected) Weight Bearing at Discharge: other (Post cath expectations) Driving: other (Post cath expectations) Contact your physician if you experience:: fever over 101, Difficulty voiding, Redness or swelling, Nausea/Vomiting, Shortness of breath, Bleeding, pain uncontrolled by pain medications - Discharge Medications Continue Rosuvastatin [Crestor] 10 mg PO DAILY HYDROcodone/ACETAMIN 10-325 [[place] 10-325] 1 tablet PO BID hydroCHLOROthiazide [Hydrochlorothiazide] 12.5 mg PO DAILY clonazePAM TAB [KlonoPIN] 0.5 mg PO BID Losartan [Cozaar] 100 mg PO DAILY Fenofibrate [Tricor] 145 mg PO DAILY Montelukast Tab [Singulair Tab] 10 mg PO BEDTIME Donepezil [Aricept] 5 mg PO BEDTIME DULoxetine [Cymbalta] 90 mg PO DAILY Atenolol [Tenormin] 25 mg PO DAILY Estrogens, Conjugated [Premarin] 1.25 mg PO DAILY Aspirin [Ecotrin] 81 mg PO DAILY Temazepam [Restoril] 30 mg PO BEDTIME Gabapentin 300 mg PO DAILY Nitroglycerin [Nitroglycerin SL Tab] 0.4 mg PO DIRECTED NIFEdipine [Nifedipine ER] 30 mg PO BEDTIME Atenolol 50 mg PO BEDTIME - Follow Up or Referral - Forms/Instructions Exam - Constitutional Vitals: Period Temp Pulse Resp BP Sys/Ho Pulse Ox Last 24 Hr 96.4 F-98.5 F 18-89 18-20 112-153/64-79 96-98 Exam: General: [Appears well with no apparent distress.] [Pleasant and cooperative. ] [Appears comfortable.] HEENT: [PERRL, normocephalic, atraumatic. Mucous membranes moist. No jaundice noted. Conjunctiva moist and clear, sclerae anicteric] Neck: No JVD/HJR, no thyromegaly or lymphadenopathy noted. No carotid bruit appreciated Cardiac: [Regular rate and rhythm.] [No murmur rub or gallop.] Lungs: [Clear to auscultation without accessory muscle use to assist the respiratory pattern.] Not requiring oxygen. Abdomen: Soft, bowel sounds normoactive. Nontender and nondistended. No abdominal bruit or thrill noted. No masses noted. Musculoskeletal: No fluid collection. Decreased range of motion is noted. Extremities: Right groin soft, free of hematoma or bruit. No clubbing, cyanosis noted. [Trace bilateral lower extremity edema noted.] Upper extremity pulses 2+. Lower extremity pulses 2+. Capillary refill less than 3 seconds. Skin: No unusual lesions or rashes. No skin breakdown appreciated. Neuro: Awake, alert and oriented 3. Moves all extremities well without hemiparesis or paralysis. No essential tremor is appreciated. Discharge Results Procedures and tests throughout hospitalization: Pending Orders 02/26/17 10:44 CL heart Routine Labs on day of discharge: Labs from last 24 hours 02/27/17 02/27/17 02/26/17 05:28 05:28 14:31 WBC 7.4 RBC 3.99 Hgb 11.8 L Hct 35.7 MCV 89.5 MCH 30 MCHC 33.1 RDW 13.9 Plt Count 306 MPV 11.4 Neut % (Auto) 43.5 Lymph % (Auto) 38.7 Sac % (Auto) 12.9 H Eos % (Auto) 3.7 Baso % (Auto) 0.9 H Neut # (Auto) 3.2 Lymph # (Auto) 2.9 Sac # (Auto) 1.0 H Eos # (Auto) 0.3 Baso # (Auto) 0.1 Immature Gran % 0.3 Nucleated RBC % 0.0 Immature Gran # 0.02 Nucleated RBCs # 0.00 D-Dimer, Quantitative Sodium 140 Potassium 4.0 Chloride 104 Carbon Dioxide 31 Anion Gap 9.0 BUN 23 H Creatinine 0.80 GFR Calculation 92 BUN/Creatinine Ratio 28.00 H Glucose 138 H Calculated Osmolality 284.4 Calcium 9.1 Magnesium 2.1 Troponin I < 0.015 02/26/17 02/26/17 09:36 09:34 WBC RBC Hgb Hct MCV MCH MCHC RDW Plt Count MPV Neut % (Auto) Lymph % (Auto) Sac % (Auto) Eos % (Auto) Baso % (Auto) Neut # (Auto) Lymph # (Auto) Sac # (Auto) Eos # (Auto) Baso # (Auto) Immature Gran % Nucleated RBC % Immature Gran # Nucleated RBCs # D-Dimer, Quantitative <= 0.5 Sodium Potassium Chloride Carbon Dioxide Anion Gap BUN Creatinine GFR Calculation BUN/Creatinine Ratio Glucose Calculated Osmolality Calcium Magnesium Troponin I < 0.015 - Imaging and Cardiology Cardiology Procedure: report reviewed by me Procedure: Chest x-ray: report reviewed by me DS: Provider Date of admission: 02/26/17 07:24 Primary care physician: . No PCP Attending physician on admission: Shane Graves MD Consults: 02/26/17 09:59 Consult to Sleep Center [CONS] Routine Reason for Sleep Center: Sleep Center Physician Consult Comment: SLEEP DISORDER Discharging clinician: Megan Lemos NP Expected date of discharge: 02/27/17
[2017-02-27] MEDS ORDERED: ATENOLOL 25 MG TABLET PO SCH (09:00)
[2017-02-27] MEDS ORDERED: ESTROGENS (CONJ) 0.625 MG TABLET PO SCH (09:00)
[2017-02-27] MEDS ORDERED: ASPIRIN EC 81 MG TABLET PO SCH (09:00)
[2017-02-27] MEDS ORDERED: hydroCHLOROthiazide 12.5 MG CAPSULE PO SCH (09:00)
[2017-02-27] MEDS ORDERED: GABAPENTIN 300 MG CAPSULE PO SCH (09:00)
[2017-02-27] MEDS ORDERED: DULoxetine 30 MG CAPSULE PO SCH (09:00)
[2017-02-27] MEDS ORDERED: ROSUVASTATIN 10 MG TABLET PO SCH (09:00)
[2017-02-27] MEDS ORDERED: FENOFIBRATE 145 MG TABLET PO SCH (09:00)
[2017-02-27] MEDS ORDERED: LOSARTAN 50 MG TABLET PO SCH (09:00)
[2017-02-27] MEDS: FENOFIBRATE 145 MG TABLET PO SCH (09:33)
[2017-02-27] MEDS: DULoxetine 30 MG CAPSULE PO SCH (09:33)
[2017-02-27] MEDS: ATENOLOL 25 MG TABLET PO SCH (09:33)
[2017-02-27] MEDS: ESTROGENS (CONJ) 0.625 MG TABLET PO SCH (09:34)
[2017-02-27] MEDS: clonazePAM 0.5 MG TABLET PO SCH (09:35)
== END 2017-02-27 10:00 | disposition home or self-care (01) ==
LOC: N.EDINP 05:30 → N.ED 05:30 → N.EDINP 08:21 → N.TELES 08:22
PROVIDERS: ADMIT Internal Medicine Cardiovascular Disease; ATTEND Internal Medicine Cardiovascular Disease

== ENCOUNTER 2018-08-28 13:29 | Inpatient (IN) ==
[2018-08-28] MEDS ORDERED: methylPREDNISolone SOD SUC 125 MG/2 ML VIAL IM ONE ×2 (17:55→18:30)
[2018-08-28] MEDS ORDERED: ALBUTEROL/IPRATROPIUM 3 ML NEB RESP TX PRN (17:58)
[2018-08-28 18:20] LABS: Allen Test Positive
[2018-08-28 18:21] LABS: ABG Base Excess 1.4 MMOL/L (-2.5-2.5); ABG HCO3 25.6 MMOL/L (20-26); ABG Oxygen Saturation 95.9 % (95-100); ABG PCO2 31.9 MM HG (35-48); ABG PH 7.487 (7.35-7.45); ABG PO2 78.6 MM HG (80-95); ABG TCO2 21.4 MMOL/L (23-27)
[2018-08-28] MEDS ORDERED: cefTRIAXone 2,000 MG in SYRINGE 1 EACH IV ONE (18:30)
[2018-08-28 18:53] LABS: Basophils # 0.1 10*3/uL (0.0-0.2); Basophils % 0.6 % (0.0-0.8); Eosinophils # 0.4 10*3/uL (0.0-0.87); Eosinophils % 3.2 % (0.00-10.9); Hematocrit 33.3 VOL% (35.7-47.0); Hemoglobin 10.9 GM/DL (12.0-16.0); Immature Granulocytes % 0.6 %; Immature Granulocytes Absolute 0.07 #; Lymphocytes # 3.1 10*3/uL (1.4-4.0); Lymphocytes % 28.4 % (21.3-54.2); Mean Corpuscular HGB Conc 32.7 GM/DL (32-36); Mean Corpuscular Hemoglobin 30 PG (27-34); Mean Corpuscular Volume 90.2 FL (87-102); Mean Platelet Volume 10.4 FL (9.6-12.0); Monocytes # 1.5 10*3/uL (0.11-0.8); Monocytes % 13.4 % (1.7-12.7); NRBC # 0.09 10*3/uL; Neutrophils # 5.8 10*3/uL (1.4-7.4); Neutrophils % 53.8 % (38.7-73.9); Platelet Count 442 T/CUMM (130-400); Red Blood Count 3.69 MC/CUMM (3.8-5.5); Red Cell Distribution Width 13.8 % (9.3-17.3); White Blood Count 10.9 T/CUMM (4-12)
[2018-08-28] MEDS ORDERED: DOCUSATE SODIUM 100 MG CAPSULE PO PRN (19:00)
[2018-08-28] MEDS ORDERED: ONDANSETRON 4 MG/2 ML VIAL IV PRN (19:00)
[2018-08-28] MEDS ORDERED: SODIUM CHLORIDE 0.9% 1,000 ML IV SCH (19:00)
[2018-08-28] MEDS ORDERED: NITROGLYCERIN SL 0.4 MG TABLET SL PRN (19:07)
[2018-08-28 19:21] LABS: Alanine Aminotransferase 48 U/L (13-56); Alkaline Phosphatase 96 U/L (45-117); Aspartate Amino Transferase 46 U/L (0-37); Bilirubin,Total < 0.39 MG/DL (0.2-1.0); Blood Urea Nitrogen 19 MG/DL (7-18); Calcium 9.1 MG/DL (8.5-10.1); Glucose 105 MG/DL (74-106); Osmolality,Calculated 278.5 MOS/KG (273-304); Sodium 139 MMOL/L (136-145); Total Protein 7.6 G/DL (6.4-8.3)
[2018-08-28] MEDS ORDERED: ENOXAPARIN 40 MG/0.4 ML SYRINGE SUBCUT SCH (21:00)
[2018-08-28] MEDS: MONTELUKAST 10 MG TABLET PO SCH (21:33)
[2018-08-28] MEDS: DONEPEZIL 5 MG TABLET PO SCH (21:33)
[2018-08-28] MEDS: clonazePAM 0.5 MG TABLET PO SCH (21:33)
[2018-08-28] MEDS: POTASSIUM CHLORIDE 20 MEQ TABLET PO SCH (21:33)
[2018-08-28] MEDS: ATENOLOL 50 MG TABLET PO SCH (21:34)
[2018-08-28] MEDS: AMITRIPTYLINE 25 MG TABLET PO PRN (21:36)
[2018-08-28] MEDS: SERTRALINE 100 MG TABLET PO SCH (21:36)
[2018-08-28] MEDS: AZITHROMYCIN INJ 500 MG in SODIUM CHLORIDE 0.9% 250 ML IV SCH (21:37)
[2018-08-28] MEDS: FUROSEMIDE 20 MG/2 ML VIAL IV SCH (22:52)
[2018-08-28 23:39] LABS: Troponin I < 0.015 NG/ML (0.00-0.045)
[2018-08-29] MEDS: methylPREDNISolone SOD SUC 40 MG/1 ML VIAL IV SCH ×3 (01:39→16:42)
[2018-08-29 04:50] LABS: Calcium 8.6 MG/DL (8.5-10.1); Osmolality,Calculated 289.1 MOS/KG (273-304); Potassium 3.4 MMOL/L (3.5-5.1)
[2018-08-29 05:33] LABS: Apearance,Urine CLEAR (Clear); Bacteria,Urine Occasional /HPF (Few); Bilirubin,Urine Negative (Negative); Blood, Urine Negative (Negative); Glucose,Urine (UA) Negative (Negative); Ketones,Urine Negative (Negative); Mucus,Urine Occasional /LPF (Occasional); Nitrite,Urine Negative (Negative); Protein,Urine Negative; RBC,Urine <1 /HPF (0-4); Urine Color Yellow (Yellow); Urine Specific Gravity 1.015 (1.001-1.035); Urine Urobilinogen < 2.0 EU/DL (0.2-1.0)
[2018-08-29] MEDS ORDERED: ESTROGENS CONJUGATED 1.25 MG PO SCH (09:00)
[2018-08-29] MEDS: ATENOLOL 25 MG TABLET PO SCH (09:01)
[2018-08-29] MEDS: hydroCHLOROthiazide 12.5 MG CAPSULE PO SCH (09:01)
[2018-08-29] MEDS: POTASSIUM CHLORIDE 20 MEQ TABLET PO SCH (09:01)
[2018-08-29] MEDS: clonazePAM 0.5 MG TABLET PO SCH ×2 (09:01→21:43)
[2018-08-29] MEDS: ASPIRIN EC 81 MG TABLET PO SCH (09:02)
[2018-08-29] MEDS: GABAPENTIN 300 MG CAPSULE PO SCH (09:02)
[2018-08-29] MEDS: FENOFIBRATE 145 MG TABLET PO SCH (09:02)
[2018-08-29] MEDS: LOSARTAN 50 MG TABLET PO SCH (09:02)
[2018-08-29] MEDS: FUROSEMIDE 20 MG/2 ML VIAL IV SCH (09:02)
[2018-08-29] MEDS: ROSUVASTATIN 10 MG TABLET PO SCH (09:03)
[2018-08-29] MEDS: PANTOPRAZOLE 40 MG TABLET PO SCH (09:05)
[2018-08-29 11:29] LABS: % Iron Saturation 9.3 % (18-50)
[2018-08-29] MEDS ORDERED: POTASSIUM CHLORIDE 20 MEQ TABLET PO PRN (11:34)
[2018-08-29 11:50] LABS: Basophils % 0.2 % (0.0-0.8); Hematocrit 33.9 VOL% (35.7-47.0); Hemoglobin 11.1 GM/DL (12.0-16.0); Immature Granulocytes % 0.9 %; Immature Granulocytes Absolute 0.11 #; Lymphocytes # 1.5 10*3/uL (1.4-4.0); Lymphocytes % 12.8 % (21.3-54.2); Mean Corpuscular HGB Conc 32.7 GM/DL (32-36); Mean Corpuscular Hemoglobin 30 PG (27-34); Mean Corpuscular Volume 90.2 FL (87-102); Mean Platelet Volume 10.4 FL (9.6-12.0); Monocytes # 0.9 10*3/uL (0.11-0.8); Monocytes % 7.3 % (1.7-12.7); NRBC # 0.05 10*3/uL; Neutrophils # 9.3 10*3/uL (1.4-7.4); Neutrophils % 78.8 % (38.7-73.9); Platelet Count 454 T/CUMM (130-400); Red Blood Count 3.76 MC/CUMM (3.8-5.5); Red Cell Distribution Width 13.6 % (9.3-17.3); White Blood Count 11.8 T/CUMM (4-12)
[2018-08-29] MEDS: FERROUS SULFATE 325 MG TABLET PO SCH ×2 (11:59→21:44)
[2018-08-29 12:21] LABS: Folate > 24.0 NG/ML (5.4-24.0); Vitamin B12 507 PG/ML (211-911)
[2018-08-29 12:22] LABS: Troponin I < 0.015 NG/ML (0.00-0.045)
[2018-08-29 12:53] LABS: Sedimentation Rate-Westergren 80 MM/HR (0-30)
[2018-08-29 14:37] LABS: Troponin I < 0.015 NG/ML (0.00-0.045)
[2018-08-29] MEDS: ACETAMINOPHEN 325 MG TABLET PO PRN (16:49)
[2018-08-29 18:36] LABS: Troponin I < 0.015 NG/ML (0.00-0.045)
[2018-08-29] MEDS: AMITRIPTYLINE 25 MG TABLET PO PRN (21:43)
[2018-08-29] MEDS: SERTRALINE 100 MG TABLET PO SCH (21:44)
[2018-08-29] MEDS: MONTELUKAST 10 MG TABLET PO SCH (21:44)
[2018-08-29] MEDS: AZITHROMYCIN INJ 500 MG in SODIUM CHLORIDE 0.9% 250 ML IV SCH (21:44)
[2018-08-29] MEDS: ATENOLOL 50 MG TABLET PO SCH (21:44)
[2018-08-29] MEDS: DONEPEZIL 5 MG TABLET PO SCH (21:44)
[2018-08-29] MEDS: cefTRIAXone 1,000 MG in SYRINGE 1 EACH IV SCH (23:19)
[2018-08-30] MEDS: methylPREDNISolone SOD SUC 40 MG/1 ML VIAL IV SCH ×2 (00:24→20:57)
[2018-08-30 04:40] LABS: Basophils % 0.1 % (0.0-0.8); Hematocrit 33.9 VOL% (35.7-47.0); Hemoglobin 10.9 GM/DL (12.0-16.0); Immature Granulocytes % 0.6 %; Immature Granulocytes Absolute 0.09 #; Lymphocytes # 1.9 10*3/uL (1.4-4.0); Lymphocytes % 12.3 % (21.3-54.2); Mean Corpuscular HGB Conc 32.2 GM/DL (32-36); Mean Corpuscular Hemoglobin 29 PG (27-34); Mean Corpuscular Volume 91.1 FL (87-102); Mean Platelet Volume 10.7 FL (9.6-12.0); Monocytes # 1.4 10*3/uL (0.11-0.8); Monocytes % 9.5 % (1.7-12.7); NRBC # 0.03 10*3/uL; Neutrophils # 11.7 10*3/uL (1.4-7.4); Neutrophils % 77.5 % (38.7-73.9); Platelet Count 509 T/CUMM (130-400); Red Blood Count 3.72 MC/CUMM (3.8-5.5); Red Cell Distribution Width 13.6 % (9.3-17.3); White Blood Count 15.1 T/CUMM (4-12)
[2018-08-30 05:05] LABS: Calcium 8.7 MG/DL (8.5-10.1); Osmolality,Calculated 281.5 MOS/KG (273-304); Potassium 3.5 MMOL/L (3.5-5.1)
[2018-08-30] MEDS: ALBUTEROL/IPRATROPIUM 3 ML NEB RESP TX SCH ×3 (08:25→19:15)
[2018-08-30] MEDS: FUROSEMIDE 20 MG/2 ML VIAL IV SCH (10:00)
[2018-08-30] MEDS: GABAPENTIN 300 MG CAPSULE PO SCH (10:01)
[2018-08-30] MEDS: hydroCHLOROthiazide 12.5 MG CAPSULE PO SCH (10:01)
[2018-08-30] MEDS: clonazePAM 0.5 MG TABLET PO SCH ×2 (10:01→20:51)
[2018-08-30] MEDS: LOSARTAN 50 MG TABLET PO SCH (10:01)
[2018-08-30] MEDS: POTASSIUM CHLORIDE 20 MEQ TABLET PO SCH (10:02)
[2018-08-30] MEDS: PANTOPRAZOLE 40 MG TABLET PO SCH (10:02)
[2018-08-30] MEDS: ROSUVASTATIN 10 MG TABLET PO SCH (10:02)
[2018-08-30] MEDS: ATENOLOL 25 MG TABLET PO SCH (10:02)
[2018-08-30] MEDS: FERROUS SULFATE 325 MG TABLET PO SCH ×2 (10:02→20:51)
[2018-08-30] MEDS: ASPIRIN EC 81 MG TABLET PO SCH (10:02)
[2018-08-30] MEDS: FENOFIBRATE 145 MG TABLET PO SCH (10:13)
[2018-08-30 10:22] LABS: Hemoglobin A1 (Alkaline) 97.8 % (96.5-98.5); Hemoglobin A2 (Alkaline) 2.2 % (1.5-3.5)
[2018-08-30] MEDS: ACETAMINOPHEN 325 MG TABLET PO PRN (13:20)
[2018-08-30] MEDS: AZITHROMYCIN INJ 500 MG in SODIUM CHLORIDE 0.9% 250 ML IV SCH (20:49)
[2018-08-30] MEDS: SERTRALINE 100 MG TABLET PO SCH (20:51)
[2018-08-30] MEDS: DONEPEZIL 5 MG TABLET PO SCH (20:51)
[2018-08-30] MEDS: MONTELUKAST 10 MG TABLET PO SCH (20:51)
[2018-08-30] MEDS: ATENOLOL 50 MG TABLET PO SCH (20:51)
[2018-08-30] MEDS: AMITRIPTYLINE 25 MG TABLET PO PRN (21:01)
[2018-08-30] MEDS: cefTRIAXone 1,000 MG in SYRINGE 1 EACH IV SCH (21:09)
[2018-08-31] MEDS: ALBUTEROL/IPRATROPIUM 3 ML NEB RESP TX SCH ×4 (00:36→19:55)
[2018-08-31] MEDS: methylPREDNISolone SOD SUC 40 MG/1 ML VIAL IV SCH ×2 (08:42→21:05)
[2018-08-31] MEDS: clonazePAM 0.5 MG TABLET PO SCH ×2 (08:43→20:58)
[2018-08-31] MEDS: POTASSIUM CHLORIDE 20 MEQ TABLET PO SCH (08:43)
[2018-08-31] MEDS: hydroCHLOROthiazide 12.5 MG CAPSULE PO SCH (08:43)
[2018-08-31] MEDS: GABAPENTIN 300 MG CAPSULE PO SCH (08:43)
[2018-08-31] MEDS: LOSARTAN 50 MG TABLET PO SCH (08:43)
[2018-08-31] MEDS: ROSUVASTATIN 10 MG TABLET PO SCH (08:43)
[2018-08-31] MEDS: ATENOLOL 25 MG TABLET PO SCH (08:44)
[2018-08-31] MEDS: FENOFIBRATE 145 MG TABLET PO SCH (08:44)
[2018-08-31] MEDS: FERROUS SULFATE 325 MG TABLET PO SCH ×2 (08:44→20:59)
[2018-08-31] MEDS: ASPIRIN EC 81 MG TABLET PO SCH (08:44)
[2018-08-31] MEDS: PANTOPRAZOLE 40 MG TABLET PO SCH (08:44)
[2018-08-31] MEDS: ACETAMINOPHEN 325 MG TABLET PO PRN (09:26)
[2018-08-31] MEDS: AZITHROMYCIN INJ 500 MG in SODIUM CHLORIDE 0.9% 250 ML IV SCH (20:56)
[2018-08-31] MEDS: AMITRIPTYLINE 25 MG TABLET PO PRN (20:58)
[2018-08-31] MEDS: DONEPEZIL 5 MG TABLET PO SCH (20:58)
[2018-08-31] MEDS: MONTELUKAST 10 MG TABLET PO SCH (20:58)
[2018-08-31] MEDS: ATENOLOL 50 MG TABLET PO SCH (20:58)
[2018-08-31] MEDS: cefTRIAXone 1,000 MG in SYRINGE 1 EACH IV SCH (21:00)
[2018-08-31] MEDS: SERTRALINE 100 MG TABLET PO SCH (22:36)
[2018-09-01] MEDS: ALBUTEROL/IPRATROPIUM 3 ML NEB RESP TX SCH ×4 (01:40→19:38)
[2018-09-01] MEDS: POTASSIUM CHLORIDE 20 MEQ TABLET PO SCH (09:06)
[2018-09-01] MEDS: methylPREDNISolone SOD SUC 40 MG/1 ML VIAL IV SCH ×2 (09:06→21:38)
[2018-09-01] MEDS: clonazePAM 0.5 MG TABLET PO SCH ×2 (09:06→21:37)
[2018-09-01] MEDS: ASPIRIN EC 81 MG TABLET PO SCH (09:06)
[2018-09-01] MEDS: ROSUVASTATIN 10 MG TABLET PO SCH (09:07)
[2018-09-01] MEDS: GABAPENTIN 300 MG CAPSULE PO SCH (09:07)
[2018-09-01] MEDS: PANTOPRAZOLE 40 MG TABLET PO SCH (09:07)
[2018-09-01] MEDS: ATENOLOL 25 MG TABLET PO SCH (09:07)
[2018-09-01] MEDS: FENOFIBRATE 145 MG TABLET PO SCH (09:07)
[2018-09-01] MEDS: hydroCHLOROthiazide 12.5 MG CAPSULE PO SCH (09:07)
[2018-09-01] MEDS: LOSARTAN 50 MG TABLET PO SCH (09:07)
[2018-09-01] MEDS: FERROUS SULFATE 325 MG TABLET PO SCH ×2 (09:07→21:38)
[2018-09-01] MEDS: SERTRALINE 100 MG TABLET PO SCH (21:38)
[2018-09-01] MEDS: AMITRIPTYLINE 25 MG TABLET PO PRN (21:38)
[2018-09-01] MEDS: DONEPEZIL 5 MG TABLET PO SCH (21:38)
[2018-09-01] MEDS: MONTELUKAST 10 MG TABLET PO SCH (21:38)
[2018-09-01] MEDS: cefTRIAXone 1,000 MG in SYRINGE 1 EACH IV SCH (21:44)
[2018-09-01] MEDS: ATENOLOL 50 MG TABLET PO SCH (21:50)
[2018-09-01] MEDS: AZITHROMYCIN INJ 500 MG in SODIUM CHLORIDE 0.9% 250 ML IV SCH (21:52)
[2018-09-02] MEDS: ALBUTEROL/IPRATROPIUM 3 ML NEB RESP TX SCH ×2 (00:36→07:12)
[2018-09-02 05:26] LABS: Basophils % 0.2 % (0.0-0.8); Eosinophils # 0.1 10*3/uL (0.0-0.87); Eosinophils % 0.7 % (0.00-10.9); Hematocrit 38.3 VOL% (35.7-47.0); Hemoglobin 12.2 GM/DL (12.0-16.0); Immature Granulocytes % 2.4 %; Mean Corpuscular HGB Conc 31.9 GM/DL (32-36); Mean Corpuscular Hemoglobin 29 PG (27-34); Mean Corpuscular Volume 90.8 FL (87-102); Mean Platelet Volume 10.6 FL (9.6-12.0); Monocytes # 0.6 10*3/uL (0.11-0.8); NRBC # 0.02 10*3/uL; Neutrophils # 9.4 10*3/uL (1.4-7.4); Neutrophils % 75.7 % (38.7-73.9); Platelet Count 608 T/CUMM (130-400); Red Blood Count 4.22 MC/CUMM (3.8-5.5); Red Cell Distribution Width 13.5 % (9.3-17.3); White Blood Count 12.4 T/CUMM (4-12)
[2018-09-02 05:43] LABS: Calcium 8.8 MG/DL (8.5-10.1); Osmolality,Calculated 280.7 MOS/KG (273-304); Potassium 3.9 MMOL/L (3.5-5.1)
[2018-09-02] MEDS: LOSARTAN 50 MG TABLET PO SCH (09:20)
[2018-09-02] MEDS: clonazePAM 0.5 MG TABLET PO SCH (09:20)
[2018-09-02] MEDS: hydroCHLOROthiazide 12.5 MG CAPSULE PO SCH (09:20)
[2018-09-02] MEDS: ASPIRIN EC 81 MG TABLET PO SCH (09:20)
[2018-09-02] MEDS: POTASSIUM CHLORIDE 20 MEQ TABLET PO SCH (09:20)
[2018-09-02] MEDS: ROSUVASTATIN 10 MG TABLET PO SCH (09:20)
[2018-09-02] MEDS: FERROUS SULFATE 325 MG TABLET PO SCH (09:20)
[2018-09-02] MEDS: GABAPENTIN 300 MG CAPSULE PO SCH (09:21)
[2018-09-02] MEDS: ATENOLOL 25 MG TABLET PO SCH (09:21)
[2018-09-02] MEDS: methylPREDNISolone SOD SUC 40 MG/1 ML VIAL IV SCH (09:21)
[2018-09-02] MEDS: PANTOPRAZOLE 40 MG TABLET PO SCH (09:21)
[2018-09-02] MEDS: FENOFIBRATE 145 MG TABLET PO SCH (09:21)
[2018-09-02 11:40] VITALS: BP 150/74
== END 2018-09-02 12:19 | disposition home or self-care (01) | DRG 193 ==
LOC: N.2E 16:26
PROVIDERS: ADMIT Family Medicine; ATTEND Family Medicine